=== PATIENT | female | born 1985 | race African-American/Black ===

== ENCOUNTER 2024-12-10 18:13 | Inpatient (IN) | payer OTHER ==
[~2024-12-10] VITALS: Ht 170.2 cm; Wt 65.3 kg
[2024-12-10 19:27] LABS: BASOPHILS # (AUTO) 0.1 K/uL (0.0-0.2); BASOPHILS % (AUTO) 1.2 % (0.0-2.0); EOSINOPHILS % (AUTO) 0.1 % (0.0-6.0); HEMATOCRIT 22 % (33-45); LYMPHOCYTES # (AUTO) 2.8 K/uL (0.8-4.8); LYMPHOCYTES % (AUTO) 64.6 % (20.0-44.0); MEAN CORPUSCULAR HEMOGLOBIN 16 PG (26.0-33.0); MEAN CORPUSCULAR HGB CONC 27 g/dl (31.0-36.0); MEAN CORPUSCULAR VOLUME 59 fL (82-100); MONOCYTES # (AUTO) 0.1 K/uL (0.1-1.30); NEUTROPHILS # (AUTO) 1.3 K/uL (1.8-8.9); NEUTROPHILS % (AUTO) 31.1 % (43.0-81.0); PLATELET COUNT (AUTO) 469 K/uL (150-450); RED BLOOD CELL COUNT(AUTO) 3.64 MIL/uL (4.0-5.2); RED CELL DISTRIBUTION WIDTH 23.8 % (11.5-15.0); WHITE BLOOD COUNT (AUTO) 4.3 K/uL (4.3-11.0)
[2024-12-10 19:34] LABS: INR 1.01 (0.91-1.10); PARTIAL THROMBOPLASTIN TIME 20.5 SEC (24.3-34.3); PROTHROMBIN TIME 10.4 SECS (9.2-11.1)
[2024-12-10] MEDS ORDERED: METH10TA7 PO (19:34)
[2024-12-10] MEDS ORDERED: USTE45DI SQ (19:34)
[2024-12-10] MEDS ORDERED: IRON PO (19:34)
[2024-12-10 19:44] LABS: HEMOGLOBIN 5.7 g/dL (11.5-14.8)
[2024-12-10 19:49] LABS: CALCIUM, SERUM 8.9 mg/dL (8.5-10.1); CARBON DIOXIDE 24 mmol/L (21-32); CHLORIDE 104 mmol/L (98-107); CREATININE 0.9 mg/dL (0.6-1.3); GLUCOSE 88 mg/dL (74-106); POTASSIUM 3.9 mmol/L (3.5-5.1); SODIUM SERUM 137 mmol/L (136-145); UREA NITROGEN, BLOOD 10 mg/dL (7-18)
[2024-12-10 20:58] VITALS: BP 98/80; TEMP 98.1; O2SAT 100
[2024-12-10] MEDS ORDERED: hydrALAZINE HCL IV 20 MG VIAL IV PRN (21:00)
[2024-12-10] MEDS ORDERED: MORPHINE SULFATE INJ 2 MG/ML DISP.SYRIN IV PRN (21:00)
[2024-12-10] MEDS ORDERED: ACETAMINOPHEN 325 MG TABLET PO PRN (21:00)
[2024-12-10] MEDS ORDERED: ONDANSETRON HCL/PF 4 MG/2 ML VIAL IVP PRN (21:00)
[2024-12-10] MEDS: IV NS 0.9% 1,000 ML IV SCH (22:19)
[2024-12-10 22:20] LABS: BAND % (MANUAL) 0 % (0.0-5.0); BASOPHILS % (MANUAL) 0 % (0.0-2.0); EOSINOPHILS % (MANUAL) 0 % (0-4); LYMPHOCYTES % (MANUAL) 45 % (16-48); MONOCYTES % (MANUAL) 4 % (0-11.0); NEUTROPHILS % (MANUAL) 51 (42-76)
[2024-12-10 22:22] LABS: ANISOCYTOSIS 3+; HYPOCHROMASIA S; PLATELET ESTIMATE ADEQUATE
[2024-12-10 22:23] LABS: OVALOCYTES 1+
[2024-12-10 23:37] LABS: IRON, SERUM 9 ug/dl (50-175); TOTAL IRON BINDING CAPACITY 461 ug/dl (250-450)
[2024-12-10 23:48] LABS: FERRITIN 3 ng/mL (8-388)
[2024-12-10 23:59] LABS: HEMOGLOBIN 5.8 g/dL (11.5-14.8)
[2024-12-11] VITALS (13 sets, daily range): BP systolic 91–120; BP diastolic 56–70; TEMP 97.3–98.7; O2SAT 98–100
[2024-12-11] MEDS ORDERED: SOD FERRIC GLUC 62.5 MG/5 ML AMPUL IV ONE (02:36)
[2024-12-11] MEDS: SOD FERRIC GLUC 125 MG in IV NS 0.9% 100 ML IV SCH ×2 (04:04→14:00)
[2024-12-11 07:31] LABS: ALBUMIN 3.4 g/dL (3.4-5.0); BILIRUBIN,TOTAL 0.6 mg/dL (0.2-1.0); CALCIUM, SERUM 8.9 mg/dL (8.5-10.1); CREATININE 0.8 mg/dL (0.6-1.3); MAGNESIUM 1.9 mg/dL (1.8-2.4); PHOSPHORUS 4.4 mg/dL (2.5-4.9); POTASSIUM 3.4 mmol/L (3.5-5.1); TOTAL PROTEIN, SERUM 7.3 g/dL (6.4-8.2)
[2024-12-11] MEDS: METHIMAZOLE (5MG) 5 MG TABLET PO SCH (08:08)
[2024-12-11 08:31] LABS: BASOPHILS % (AUTO) 0.5 % (0.0-2.0); HEMATOCRIT 24 % (33-45); LYMPHOCYTES # (AUTO) 2.8 K/uL (0.8-4.8); LYMPHOCYTES % (AUTO) 67.8 % (20.0-44.0); MEAN CORPUSCULAR HEMOGLOBIN 18 PG (26.0-33.0); MEAN CORPUSCULAR HGB CONC 28 g/dl (31.0-36.0); MEAN CORPUSCULAR VOLUME 64 fL (82-100); MONOCYTES # (AUTO) 0.2 K/uL (0.1-1.30); MONOCYTES % (AUTO) 5.3 % (2.0-12.0); NEUTROPHILS # (AUTO) 1.1 K/uL (1.8-8.9); NEUTROPHILS % (AUTO) 26.4 % (43.0-81.0); PLATELET COUNT (AUTO) 379 K/uL (150-450); WHITE BLOOD COUNT (AUTO) 4.2 K/uL (4.3-11.0)
[2024-12-11 08:41] LABS: HEMOGLOBIN 6.6 g/dL (11.5-14.8)
[2024-12-11] MEDS: POTASSIUM CHLORIDE 20 MEQ TAB.PRT.SR PO ONE (10:14)
[2024-12-11 10:15] LABS: HEMOGLOBIN 6.5 g/dL (11.5-14.8)
[2024-12-11 10:22] LABS: LYMPHOCYTES % (MANUAL) 42 % (16-48); MONOCYTES % (MANUAL) 1 % (0-11.0); NEUTROPHILS % (MANUAL) 57 (42-76); PLATELET ESTIMATE ADEQUATE
[2024-12-11 10:23] LABS: ANISOCYTOSIS 1+; HYPOCHROMASIA 1+; OVALOCYTES 1+
[2024-12-11] MEDS ORDERED: SOD FERRIC GLUC 125 MG in IV NS 0.9% 100 ML IV SCH (14:00)
[2024-12-11 16:56] LABS: HEMOGLOBIN 7.6 g/dL (11.5-14.8)
== END 2024-12-11 16:28 | disposition home or self-care (01) | DRG 812 ==
LOC: ER 18:30 → TELE 20:31
PROVIDERS: ADMIT Internal Medicine; ATTEND Nurse Practitioner Acute Care
PROC: 30233N1 Transfusion of Nonautologous Red Blood Cells into Peripheral Vein, Percutaneous Approach (ICD-10-PCS; principal; 2024-12-11)
DX: D50.9 Iron deficiency anemia, unspecified (principal); D75.839 Thrombocytosis, unspecified; E05.90 Thyrotoxicosis, unspecified without thyrotoxic crisis or storm; D25.9 Leiomyoma of uterus, unspecified
CPT/HCPCS: 36415; 80048-TC; 80053-TC; 82728-TC; 83540-TC; 83735-TC; 84100-TC; 84484-TC; 84702-TC; 85025-TC; 85027-TC; 85730-TC; 86850-TC; A4223; G0378; J2916; J7030; J7050; P9016